=== PATIENT | male | born 2000 | race Caucasian/White ===

== ENCOUNTER → 2020-01-22 14:07 | Outpatient (CLI) | payer MEDICAID, SELFPAY ==
[2020-01-22 14:17] LABS: Basophils # 0.1 K/mm3 (0-0.2); Basophils % 0.7 % (0.1-2.0); Eosinophils # 0.6 K/mm3 (0.0-0.4); Eosinophils % 8.3 % (0.1-12.0); Hematocrit 47.9 % (42.0-52.0); Hemoglobin 16.3 g/dL (14.1-18.0); Lymphocytes # 2.2 K/mm3 (0.7-4.5); Lymphocytes % 29.5 % (10-50); Mean Corpuscular HGB Conc 34.1 g/dL (31.8-35.4); Mean Corpuscular Hemoglobin 30.2 pg (27.0-31.2); Mean Corpuscular Volume 88.7 fl (80-94); Mean Platelet Volume 8.9 fl (7.4-10.4); Monocytes # 0.5 K/mm3 (0.1-1.0); Monocytes % 6.1 % (1.7-9.3); Neutrophils # 4.2 K/mm3 (1.8-7.8); Neutrophils % 55.3 % (37.0-80.0); Platelet Count 292 K/mm3 (142-424); Red Cell Distribution Width 12.8 % (11.5-17.5); White Blood Count 7.5 K/mm3 (4.5-13.0)
[2020-01-22 14:28] LABS: Chloride 104 mmol/L (98-107); Sodium 144 mmol/L (136-145)
[2020-01-22 14:29] LABS: Potassium 3.9 mmoL/L (3.5-5.1)
[2020-01-22 14:31] LABS: Alanine Aminotransferase 57 U/L (12-78); Albumin Level 4.6 g/dl (3.5-5.0); Albumin/Globulin Ratio 1.6 (1.1-1.8); Alkaline Phosphatase 73 U/L (38-126); Anion Gap 14.9 mEq/L (5-15); Aspartate Amino Transferase 33 U/L (17-59); Bilirubin,Total 0.6 mg/dl (0.2-1.3); Blood Urea Nitrogen 10 mg/dl (9-20); Carbon Dioxide 29 mmol/L (22.0-30.0); Cholesterol 204 mg/dl (140-200); Estimated Glomerular Filt Rate 109 ml/min (>60); GFR (African American) 132 ML/MIN (>60); Globulin 2.9 g/dL (1.3-3.2); Glucose 73 mg/dl (74-100); Total Protein,Serum 7.5 g/dl (6.3-8.2); Triglycerides 251 mg/dl (30-150); VLDL Cholesterol 50 mg/dL (0-40)
[2020-01-22 14:32] LABS: Calcium 10.2 mg/dl (8.4-10.2); Chol/HDL Ratio 6.4 (1-3.5); HDL Cholesterol 32 mg/dl (40-60)
[2020-01-22 14:43] LABS: Direct LDL Cholesterol 127.83 mg/dL (100-129)
[2020-01-22 14:46] LABS: 25-OH Vitamin D, Total < 12.8 ng/mL (30-100)
[2020-01-22 14:50] LABS: T4 (Thyroxine) 10.2 ug/dl (5.53-11.0)
[2020-01-22 15:03] LABS: Thyroid Stimulating Hormone 1.09 uIU/mL (0.465-4.68)
== END ==
PROVIDERS: Visit Provider Nurse Practitioner Family
DX: R21 Rash and other nonspecific skin eruption (principal); R53.83 Other fatigue; E55.9 Vitamin D deficiency, unspecified
CPT/HCPCS: 80053; 80061; 82306; 84436; 84443; 85025

== ENCOUNTER 2021-02-18 12:29 | Emergency (ER) | payer MEDICAID, SELFPAY ==
[2021-02-18 12:58] VITALS: BP 141/76; PULSE 81; RESP 19; TEMP 36.7; O2SAT 96; BMI 31.1
--- NOTE | 2021-02-18 13:16 | HMH.EDUTC ---
[facility] [place] Clinical Impression: Otitis media Qualifiers: Otitis media type: unspecified Laterality: right Qualified Code(s): H66.91 - Otitis media, unspecified, right ear Disposition: Home, Self-Care Condition on Discharge: Good Instructions: Ofloxacin, Clarithromycin Additional Instructions: Take medication as prescribed FOllow up with ENT for further treatment and evaluation Follow up with Family Doctor if no improvement or any worsening of symptoms Straight to ER if any life threatening symptoms Prescriptions: Clarithromycin 250 mg PO BID 10 Days #20 tab Transmission Status: Pending to [facility] Ofloxacin [Floxin 0.3% OTIC Solution 5mL] 10 drops EAR-RIGHT BID 14 Days #5 ml Transmission Status: Pending to [facility] Referrals: Joseph Cortez MD [Primary Care Provider] - As needed Kathy Collier MD [Consulting Physician] - Time of Disposition: 13:32 Medical Decision Making - Damon Inquiry Pt receiving controlled substance: No Damon was queried for this patient: No Vital Signs: 02/18/21 12:58 Temperature 98.1 F Temperature Source Oral Pulse Rate [Right] 81 Respiratory Rate 19 Blood Pressure [Right Arm] 141/76 H Blood Pressure Mean [Right Arm] 97 02 Sat by Pulse Oximetry 96 Oxygen Delivery Method Room Air [facility] [place] - General Stated complaint: rt ear pain, drainage Time Seen by Provider: 02/18/21 13:18 Description of Symptoms (Recalled from Triage Doc. by RN): SEVER DRAINAGE OF PUS & BLOOD FROM RIGHT EAR SINCE YESTERDAY. HX OF EAR PROBLEMS HEENT Symptoms (Recalled from RN notes): Yes Resp Symptoms (Recalled from RN notes): No Skin Symptoms (Recalled from RN notes): No MS Symptoms (Recalled from RN notes): No Functional Status (Recalled from RN notes): WNL - History of Present Illness Provider Complaint: Patient states that he has been having some pressure in his ears for a couple of days with drainage and when he woke up he had blood and pus on his pillow State that his ear has continued to having some drainage from it but pain and pressure is better but mother states she called Dr Collier was out so she brought him in here - Related Data Previous Rx's Medication Instructions Recorded mupirocin 2 % topical ointment 1 applic TOPICAL BID #30 g 01/22/20 cholecalciferol (vitamin D3) 1,250 1,250 mcg PO QWEEK #7 cap 01/23/20 mcg (50,000 unit) capsule cholecalciferol (vitamin D3) 50 50 mcg PO DAILY #30 cap 01/23/20 mcg (2,000 unit) capsule minocycline 100 mg tablet 100 mg PO BID 10 Days #20 tab 05/22/20 prednisone 20 mg tablet 20 mg PO BID 5 Days #10 tab 05/22/20 loratadine 10 mg tablet See Rx Instructions .ROUTE 09/22/20 .COMPLEX #90 tab albuterol sulfate 90 mcg/actuation See Rx Instructions .ROUTE 02/06/21 aerosol inhaler .COMPLEX #8.5 g Clarithromycin 250 mg PO BID 10 Days #20 tab 02/18/21 Ofloxacin [Floxin 0.3% OTIC 10 drops EAR-RIGHT BID 14 Days #5 02/18/21 Solution 5mL] ml Allergies Allergy/AdvReac Type Severity Reaction Status Date / Time Penicillins [PENICILLINS] Allergy Intermediate Verified 02/18/21 13:00 cefdinir Allergy Rash Verified 02/18/21 13:00 - Worker's Comp Is this a Worker's Comp case?: No [facility] History - Hepatitis A Screen Drug use history?: No High risk sexual behaviors?: No History of sexually transmitted infection?: No Currently employed?: No Childcare worker?: No Do you have indoor plumbing?: Yes Do you have electricity?: Yes Attestation statement:: This patient has been screened for Hepatitis A risk factors. I have reviewed the patient's past medical history: Yes Medical History: Reports:: Asthma Other Medical History: Reports: Sinus Problems Comment: ALLERGIES,HEARING LOSS Laterality Cases: Bilateral: Tonsillectomy, Other Other Surgeries: Yes: No Previous Surgery, Hernia Repair Amputation: No Fractures: Yes Comment: CRANIAL BONE WAS RE BRIDGED TO FIX HIS HEARING. - Social History Smoking Status: Never smoker Alc
[2021-02-18 13:56] VITALS: BP 141/76; PULSE 81; RESP 19; TEMP 36.7; O2SAT 96
== END 2021-02-18 13:57 | disposition home or self-care (01) ==
PROVIDERS: Emergency Provider Nurse Practitioner; PCP Emergency Medicine
DX: H66.91 Otitis media, unspecified, right ear (principal); Z88.0 Allergy status to penicillin
CPT/HCPCS: 99202; G0463

== ENCOUNTER 2025-03-12 17:50 | Emergency (ER) | payer MEDICAID, SELFPAY ==
[2025-03-12] VITALS (11 sets, daily range): BP systolic 135–166; BP diastolic 88–98; PULSE 86–109; RESP 18–20; TEMP 36.6; O2SAT 95–98; BMI 32.5
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
--- NOTE | 2025-03-12 17:59 | ECG_ITS ---
APPROVED REPORT Exam: Resting ECG HR:98 bpm ECG Measurements Heart Rate 98 AXES FL 178 P 31 QRSd 93 QRS 70 QT 329 T 32 QTc 384 Conclusion SINUS RHYTHM NONSPECIFIC ST ELEVATION [0.05+ mV ST ELEVATION] BORDERLINE ECG UNCONFIRMED REPORT Electronically signed by : STEPHANE GARZA, 03/14/2025 23:07:18
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
[2025-03-12 18:12] LABS: Hematocrit 44.1 % (42.0-52.0); Hemoglobin 15.6 g/dL (14.1-18.0); Immature Granulocytes % 0.9 %; Mean Corpuscular HGB Conc 35.4 g/dL (31.8-35.4); Mean Corpuscular Hemoglobin 30.1 pg (27.0-31.2); Mean Corpuscular Volume 85.1 fl (80-94); Nucleated Red Blood Cells % 0 %; Platelet Count 259 K/mm3 (142-424); Red Blood Count 5.18 M/mm3 (4.60-6.20); Red Cell Distribution Width-SD 37.3 fL; White Blood Count 8.2 K/mm3 (4.8-10.8)
[2025-03-12 18:26] LABS: Activated Partial Thrombo Time 26.6 seconds (22.8-30.6); INR 1.08 (0.9-1.1); Prothrombin Time 11.9 seconds (10.1-12.5)
[2025-03-12] MEDS: FENTANYL 100MCG/2ML VIAL 50 MCG IV (18:28)
[2025-03-12] MEDS: ONDANSETRON 4MG/2ML VIAL 4 MG IV (18:28)
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
[2025-03-12] MEDS: IOPAMIDOL-370 (76%);100ML BOTTLE 80 ML IV ×2 (18:46→18:47)
[2025-03-12] MEDS: SODIUM CHLORIDE 0.9% 10ML SYR (RAD ONLY) 10 ML IV (18:46)
[2025-03-12] MEDS: 0.9 % SODIUM CHLORIDE 50 ML VIAL IV ×2 (18:46→18:47)
[2025-03-12 19:45] LABS: Alanine Aminotransferase 56 U/L (12-78); Albumin Level 4.5 g/dl (3.5-5.0); Albumin/Globulin Ratio 1.6 (1.1-1.8); Alkaline Phosphatase 81 U/L (38-126); Anion Gap 14.4 mEq/L (5-15); Aspartate Amino Transferase 39 U/L (17-59); Bilirubin,Total 1.0 mg/dl (0.2-1.3); Blood Urea Nitrogen 10 mg/dl (9-20); Calcium 8.8 mg/dl (8.4-10.2); Carbon Dioxide 23 mmol/L (22.0-30.0); Chloride 106 mmol/L (98-107); Creatinine Clearance Estimated 195 mL/min (50-200); Creatinine,Serum 0.90 mg/dl (0.66-1.25); Estimated Glomerular Filt Rate 104 ml/min (>60); GFR (African American) 125 ML/MIN (>60); Globulin 2.8 g/dL (1.3-3.2); Glucose 105 mg/dl (74-100); Potassium 3.4 mmoL/L (3.5-5.1); Sodium 140 mmol/L (136-145); Total Protein,Serum 7.3 g/dl (6.3-8.2)
[2025-03-12] MEDS: IBUPROFEN 400 MG TABLET 800 MG PO (21:21)
[2025-03-12] MEDS: METHOCARBAMOL 500MG TABLET 1000 MG PO (21:21)
== END 2025-03-12 21:40 | disposition home or self-care (01) ==
PROVIDERS: Emergency Provider Emergency Medicine
DX: R07.89 Other chest pain (principal); S30.1XXA Contusion of abdominal wall, initial encounter; E87.6 Hypokalemia; V49.40XA Driver injured in collision with unspecified motor vehicles in traffic accident, initial encounter; H53.143 Visual discomfort, bilateral
CPT/HCPCS: 36415; 70450; 70486; 70496; 70498; 71045; 71275; 72125; 72170; 74174; 80053; 85025; 85610; 85730; 86850; 93005; 96374; 96375; 99285; J2405; J3010; Q9967